=== PATIENT | female | born 1995 | race Caucasian/White ===

== ENCOUNTER 2019-05-17 17:26 | Emergency (ER) | payer OTHER ==
[2019-05-17 17:51] VITALS: BP 116/60; PULSE 82; TEMP 98.9; BMI 40.7
--- NOTE | 2019-05-17 18:09 | PDOC ---
History of Present Illness - General Chief Complaint: Injury Stated Complaint: L/PATELLA INJURY/EVALUATION Time Seen by Provider: 05/17/19 18:03 History Source: Patient Exam Limitations: No Limitations - History of Present Illness Occurred: reports: just prior to arrival Severity: reports: mild, moderate Pain Location: reports: lower extremity (left knee pain x 1 month ) Method of Injury: Yes: direct blow, fall Loss of Consciousness: no loss of consciousness Associated Symptoms (Fall): denies symptoms Past History - Travel Traveled outside of the country in the last 30 days: No Close contact w/someone who was outside of country & ill: No - Past Medical History Allergies/Adverse Reactions: Allergies Allergy/AdvReac Type Severity Reaction Status Date / Time lactose Allergy Verified 05/17/19 17:51 peanut Allergy Verified 05/17/19 17:51 No Known Drug Allergies AdvReac Verified 05/17/19 17:51 Home Medications: Ambulatory Orders Naproxen [Naprosyn -] 500 mg PO BID #14 tablet 04/18/16 Cane 1 each MC DAILY 1 Days #1 each 05/17/19 Oxycodone HCl/Acetaminophen [Percocet 5-325 mg Tablet -] 1 - 2 tab PO Q4H PRN # 10 tablet MDD 4 05/17/19 CVA: No COPD: No Thyroid Disease: (NONE) - Suicide/Smoking/Psychosocial Hx Smoking Status: No Smoking History: Never smoked Have you smoked in the past 12 months: No Number of Cigarettes Smoked Daily: 0 Information on smoking cessation initiated: No Hx Alcohol Use: No Drug/Substance Use Hx: No Substance Use Type: Alcohol Review of Systems - Review of Systems Able to Perform ROS?: Yes Is the patient limited Romanian proficient: Yes Constitutional: Yes: Symptoms Reported, See HPI, Malaise HEENTM: No: Symptoms Reported Respiratory: No: Symptoms reported Musculoskeletal: Yes: Symptoms Reported, See HPI, Joint Pain, Joint Swelling Integumentary: Yes: Symptoms Reported, See HPI All Other Systems: Reviewed and Negative *Physical Exam - Vital Signs Last Vital Signs Temp Pulse Resp BP Pulse Ox 98.9 F 82 19 116/60 99 05/17/19 17:47 05/17/19 17:47 05/17/19 17:47 05/17/19 17:47 05/17/19 17:47 - Physical Exam General Appearance: Yes: Nourished, Appropriately Dressed, Apparent Distress, Moderate Distress HEENT: positive: SARAH BETH, Normal ENT Inspection, TMs Normal, Pharynx Normal Neck: positive: Supple. negative: Tender, Lymphadenopathy (R), Lymphadenopathy (L) Respiratory/Chest: positive: Lungs Clear Musculoskeletal: positive: Normal Inspection. negative: Vertebral Tenderness Extremity: positive: Normal Capillary Refill, Tender, Swelling. negative: Normal Inspection, Normal Range of Motion (Ras range of motion secondary to moderate to severe edema/swelling to right knee capsule and joint space. Patella is mobile however is tender to touch. Has medial and lateral collateral ligamentous pain and unable to flex past approximately 45. Neurovascular intact afoot) Integumentary: positive: Normal Color Neurologic: positive: sports specialist II-XII NML intact, Fully Oriented, Alert, Normal Mood/ Affect, Normal Response, Motor Strength 5/5 Progress Note - Progress Note Progress Note: Extensive left knee damage incurred approximately one month ago. Is here requesting consultation, assistance with bracing, and recommendations for orthopedic consults. Has no pain medication, was uncertain as to how to apply brace. And had multiple questions about her injury which she reports and her family reports were never completely explained to her. *DC/Admit/Observation/Transfer Diagnosis at time of Disposition: Knee cartilage, torn, right Qualifiers: Tear current or old: current Encounter type: initial encounter Meniscus of knee : unspecified Meniscus tear of knee type: unspecified type Qualified Code(s): S83.206A - Unspecified tear of unspecified meniscus, current injury, right knee , initial encounter - Discharge Dispostion Disposition: HOME Condition at time of disposition: Stable Decision to Admit order: No - Prescriptions Prescriptions: Cane 1 each MC DAILY 1 Days #1 each Oxycodone HCl/Acetaminophen [Percocet 5-325 mg Tablet -] 1 - 2 tab PO Q4H PRN # 10 tablet MDD 4 PRN Reason: Pain - Referrals Referrals: Castro Bentley MD [Primary Care Provider] - - Patient Instructions Printed Discharge Instructions: DI for Knee Sprain Additional Instructions: Rest, ice to area on and off for 15 minutes 4-6 times a day Avoid heavy lifting or exercise until pain and swelling is resolved or until further directed Keep area highly elevated to reduce swelling Use splints Followup with orthopedist in one to 2 days if not improving, if significantly improved may wait one week for followup with orthopedist May use ibuprofen every 6 hours as needed for pain Percocet half tab to 1 tablet every 6 hours as needed for severe pain - Post Discharge Activity
== END 2019-05-17 18:57 | disposition home or self-care (01) ==
LOC: JERFT 17:26
DX: S83.204A Other tear of unspecified meniscus, current injury, left knee, initial encounter (principal); W19.XXXA Unspecified fall, initial encounter; Y93.89 Activity, other specified; Y92.89 Other specified places as the place of occurrence of the external cause; Y99.8 Other external cause status
CPT/HCPCS: 99281-25

== ENCOUNTER 2019-06-10 06:15 | Day surgery (SDC) | payer OTHER ==
[2019-06-10] MEDS ORDERED: EPINEPHrine 1:1,000 1 MG/1 ML - 30ML VIAL (INJECTION) ONE (07:04)
[2019-06-10 07:06] VITALS: BMI 39.6
[2019-06-10] MEDS ORDERED: MIDAZOLAM HCL 2 MG/2 ML SINGLE DOSE VIAL ONE ×3 (07:13→08:35)
[2019-06-10] MEDS ORDERED: SODIUM CHLORIDE 0.9% P/F 10 ML VIAL IJ ONE (07:13)
[2019-06-10] MEDS ORDERED: BUPIVACAINE HCL/PF 0.5% (5 MG/ML) 30 ML VIAL IJ ONE (07:13)
[2019-06-10] MEDS ORDERED: BUPIVACAINE LIPOSOME/PF (EXPAREL) 266 MG/20 ML VIAL ONE (07:13)
[2019-06-10] MEDS ORDERED: DEXAMETHASONE SOD PHOSPHATE 4 MG/1 ML VIAL ONE (07:26)
[2019-06-10] MEDS ORDERED: PROPOFOL 20 ML ONE ×8 (07:26→11:00)
[2019-06-10] MEDS ORDERED: ONDANSETRON 4 MG/2 ML VIAL ONE (07:26)
[2019-06-10] MEDS ORDERED: SUCCINYLCHOLINE CHLORIDE 200 MG/10 ML SYRINGE ONE (07:26)
--- NOTE | 2019-06-10 07:27 | OP ---
Operative Note - Note: Operative Date: 06/10/19 Pre-Operative Diagnosis: Left MCL tear Operation: Left MCL reconstruction Post-Operative Diagnosis: Same as Pre-op Surgeon: Saul Pineda [employer] Director: Andreea Osorio Anesthesia: General Operative Report Dictated: Yes
[2019-06-10] MEDS ORDERED: BUPIVACAINE HCL/PF 0.5% (5MG/ML) 10 ML VIAL ONE (07:49)
[2019-06-10] MEDS ORDERED: ONDANSETRON 4 MG/2 ML VIAL IVPUSH PRN (11:07)
[2019-06-10] MEDS ORDERED: oxyCODONE HCL 5 MG TABLET PO PRN (11:07)
[2019-06-10] MEDS ORDERED: LACTATED RINGERS SOLUTION 1,000 ML IV SCH (11:15)
--- NOTE | 2019-06-10 14:44 | OP ---
DATE OF OPERATION: 06/10/2019 POSTOPERATIVE DIAGNOSES: Left knee anterior cruciate ligament tear, posterior cruciate ligament tear, medial meniscal tear, lateral meniscal tear, medial collateral ligament tear, osteochondral lesion. POSTOPERATIVE DIAGNOSES: Left knee anterior cruciate ligament tear, posterior cruciate ligament tear, medial meniscal tear, lateral meniscal tear, medial collateral ligament tear, osteochondral lesion. PROCEDURE: Left knee arthroscopy with medial meniscal repair, lateral meniscectomy and then open reconstruction of the medial collateral ligament. ANESTHESIA: Spinal plus regional. POSTOPERATIVE CONDITION: Stable. COMPLICATIONS: None. IMPLANTS: Blood and Nephew 7 x 20-mm PEEK interference screw on the femur, Blood and Nephew FasT-Fix 360 x2 in the medial meniscus, Blood and Nephew Q-FIX anchor x1 in the femur, Arthrex 6.5-mm cancellous screw with 18-mm washer spiked in the tibia. INDICATIONS: This is a pleasant young woman who had injured her knee when jumping on a trampoline. MRI demonstrated the multiple injuries as demonstrated above. Given the multiligament injury and significant functional disability of the patient, operative care was recommended. We discussed the option of nonoperative care. I reviewed operative risks in detail including bleeding, infection, neurovascular injury, need for further surgery, postoperative pain and stiffness, progressive osteoarthritis, persistent instability, arthrofibrosis. We reviewed that the plan was to perform a staged procedure. The 1st procedure would be to deal with the medial collateral ligament and meniscal pathology. In addition, the osteochondral injury would be better assessed, and the determination would be made as to what fixation would be done here. The use of allograft was discussed along with the potential risks as well as infection. We discussed risk of rejection. We reviewed the postoperative rehabilitation protocol. We reviewed a 2nd procedure will be done to finish the ligamentous repair and that the staging would be beneficial to her to allow for some rehabilitation in between, limit her risk of arthrofibrosis, and allow for an efficient recovery. I addressed all of the patient's questions and concerns. We also reviewed medical risks such as heart attack, stroke, DVT, PE, and . We addressed the use of perioperative antibiotic and DVT prophylaxis. Patient voiced understanding and elected to proceed. DESCRIPTION OF PROCEDURE: Patient was brought to the operating room where she was placed supine on the operating room table. She was previously given a preoperative block in the holding area. Spinal anesthetic was administered then. She was then examined. The knee demonstrated range of motion 3 degrees of hyperextension to 90 degrees of flexion. The MCL opened in full extension with a moderate endpoint but no endpoint at 30 degrees. The PCL was felt to be stable. The ACL demonstrated positive Aman. The lateral collateral ligament was stable. The patient was now prepped and draped in the usual sterile fashion. A preoperative dose of antibiotics given, and the usual time-out procedure was performed. Initially, the procedures were started arthroscopically. The portals were marked out on the skin. The lateral portal was established using an 11 blade. The arthroscope was now passed into the knee. Examination of the patellofemoral joint demonstrated no articular lesions. There was significant synovial irritation and a small medial plica. The arthroscope was passed along the trochlea, and there was seen to be an osteochondral lesion at the medial border of the trochlea at its upper region. This was felt to be outside the articular region. The arthroscope was now passed down into the notch. Here ACL was clearly fully torn. The PCL had some tearing at its femoral origin but appeared intact. Medial portal was established with spinal needle localization. The ACL remnant was debrided demonstrating that the majority of the PCL did appear intact. The medial compartment was now examined. There was clear widening of the medial compartment. Initial inspection demonstrated a large cartilage lesion, which was measured at approximately 1 cm around on the medial femoral condyle. The attention was turned to the meniscus. The meniscus initially appeared okay; however, on probing of the posterior horn of the meniscus, there was a peripheral tear noted. It was in the red-white zone. Given her young age, it was felt that it was worth attempt at repairing. The mehreen were used to debride the tear area. Two FasT-Fix 360 devices were now inserted in horizontal mattress fashion along the posterior horn securing the meniscus down. It was now probed and found to be stable. The arthroscope was now passed into the lateral compartment. Here, the posterior horn was noted to be absent. The body had a tear, which had a portion flipped back upon itself. The arthroscope was passed down the notch after debriding the ACL, and the root tissue was visualized to be intact at the junction of the root and posterior horn. Free edge of the meniscus was grasped, and there was mobility only to assisted back towards the meniscal root, and therefore, repair was felt to be untenable. The free flap of the meniscus of the posterior horn was debrided, and the body was allowed to remain in place. There was superficial articular wear on the femoral and tibial surface as noted. The excess fluid was then withdrawn from the knee. The arthroscope was withdrawn. An incision was now planned obliquely over the medial aspect of the knee. The incision was carried down through skin through subcutaneous tissue. Blunt spreading was used to expose the fascia. The fascia was then split in line with the limb. A great deal of scarring was noted deep to the fascia. A ligamentous structure consistent with the MCL was identified, balled up, and sitting at the level of the joint line. The ball of tissue was freed up from the surrounding tissue, and the MCL was identified back to its origin. Though there were some fibers intact, the general character of the tendon was shredded in multiple planes, and upon putting tension on, they would not hold tension making direct repair impossible. The decision was made to perform a reconstruction. The deep MCL was now dissected cleanly away from the superficial MCL fibers. The deep MCL was noted to be torn obliquely extending more proximal from the joints. Deep MCL was now repaired using No. 1 Vicryl along with the capsule down to the meniscus. Having repaired this, attention was turned to reconstructing the superficial MCL. The anatomic origin of the MCL had been applied both by following the fibers back to their origin and also identifying the medial epicondyle and going posterior and just superior to it. The guide pin was inserted aiming obliquely, proximal, and anterior and advanced across the femur and out through the skin. This was then overreamed with a size 8 reamer based on sizing of the tibialis anterior graft. The socket was reamed to a depth of 25 mm. The Beath pin was then used to pass sutures, which were then placed into the graft, and the graft was drawn into the socket. An interference screw was now inserted gaining good purchase. A Q-FIX anchor was decided to be inserted as backup fixation. This was drilled proximal to the MCL origin, and both sutures were then further sutured through and tied providing extra fixation to the graft. The graft was then brought distal. The sartorius fascia was elevated, and the interval between the semitendinosus and gracilis was identified. A curette was passed on the anterior border of the tibia to remove any soft tissue and provide a good healing surface for the ligament. The 0.062 K-wire was then used to locate the center of the planned insertion. The graft was wrapped around the 0.062 K-wire and then the joint was passed through a range of motion to ensure the isometric properties were present, and they were. The K-wire was now overdrilled to 5 mm x 30 mm. A 25-mm cancellous screw was chosen. The graft was then split down to midline, and the screw was passed through the middle of the graft. A washer was placed 18 mm after the 14-mm washer was seen to be too small. Maintaining tension on the graft with a Jl clamp, the knee was positioned to 10 degrees of flexion and varus stress. The screw was then tightened down securing the graft. The knee was now tested both at zero and 30 degrees, and the MCL was found to be stable. At this point, the wound was copiously irrigated. The fascia was then repaired using No. 1 Vicryl over the MCL including the sartorius fascia and the crural fascia more proximal. The subcutaneous tissue was approximated using 0 Vicryl and 2-0 Vicryl. The skin was closed using 3-0 nylon. Sterile dressings were placed. The patient was transferred to recovery room after being placed into a knee immobilizer in stable condition. Tammie DAVENPORT/[id number]
[2019-06-10] MEDS ORDERED: oxyCODONE HCL 5 MG TABLET PO ONE (16:00)
[2019-06-10] MEDS ORDERED: oxyCODONE HCL 5 MG TABLET ONE (16:02)
[2019-06-10 16:08] VITALS: PULSE 74
[2019-06-10 16:37] VITALS: BP 113/71
[2019-06-10 17:20] VITALS: TEMP 97.4
== END 2019-06-10 17:10 | disposition home or self-care (01) ==
LOC: FASU 06:15
PROVIDERS: ATTEND Orthopaedic Surgery Sports Medicine
PROC: 0SBD4ZZ Excision of Left Knee Joint, Percutaneous Endoscopic Approach (ICD-10-PCS; 2019-06-10)
PROC: 0SQD0ZZ Repair Left Knee Joint, Open Approach (ICD-10-PCS; 2019-06-10)
PROC: 0SQD4ZZ Repair Left Knee Joint, Percutaneous Endoscopic Approach (ICD-10-PCS; principal; 2019-06-10 08:43)
DX: S83.512A Sprain of anterior cruciate ligament of left knee, initial encounter (principal); S83.522A Sprain of posterior cruciate ligament of left knee, initial encounter; S83.282A Other tear of lateral meniscus, current injury, left knee, initial encounter; S83.242A Other tear of medial meniscus, current injury, left knee, initial encounter; S83.412A Sprain of medial collateral ligament of left knee, initial encounter; M25.862 Other specified joint disorders, left knee; X58.XXXA Exposure to other specified factors, initial encounter; Y93.9 Activity, unspecified; Y92.9 Unspecified place or not applicable
CPT/HCPCS: 27405; 29881; 29882; G0289; 81025; 94760

== ENCOUNTER 2019-08-05 10:15 | Day surgery (SDC) | payer OTHER ==
--- NOTE | 2019-08-05 07:37 | OP ---
Operative Note - Note: Operative Date: 08/05/19 Pre-Operative Diagnosis: Left ACL tear Operation: Left ACL Reconstruction Post-Operative Diagnosis: Same as Pre-op Surgeon: Saul Pineda [employer] Specialist: Andreea Osorio Anesthesiologist/GRAIN RECEIVER: Tad Rico Anesthesia: General Operative Report Dictated: Yes
[2019-08-05] MEDS ORDERED: MIDAZOLAM HCL 2 MG/2 ML SINGLE DOSE VIAL ONE ×3 (10:25→12:23)
[2019-08-05 10:47] VITALS: BMI 38.7
[2019-08-05] MEDS ORDERED: SODIUM CHLORIDE 0.9% P/F 10 ML VIAL IJ ONE (11:10)
[2019-08-05] MEDS ORDERED: BUPIVACAINE HCL/PF 0.5% (5 MG/ML) 30 ML VIAL IJ ONE (11:10)
[2019-08-05] MEDS ORDERED: BUPIVACAINE HCL/PF 0.5% (5MG/ML) 10 ML VIAL ONE (12:34)
[2019-08-05] MEDS ORDERED: PROPOFOL 20 ML ONE ×5 (12:42→14:37)
[2019-08-05] MEDS ORDERED: ceFAZolin SODIUM 1 GM VIAL ONE ×2 (12:52→12:53)
[2019-08-05] MEDS ORDERED: DEXAMETHASONE SOD PHOSPHATE 4 MG/1 ML VIAL ONE ×2 (12:52)
[2019-08-05] MEDS ORDERED: LIDOCAINE HCL/PF 2% SDV 5ML VIAL ONE (12:52)
[2019-08-05] MEDS ORDERED: ONDANSETRON 4 MG/2 ML VIAL ONE (12:52)
[2019-08-05] MEDS ORDERED: TRANEXAMIC ACID 1000 MG/10 ML VIAL ONE (13:03)
[2019-08-05] MEDS ORDERED: EPINEPHrine 1:1,000 1 MG/1 ML - 30ML VIAL (INJECTION) ONE (14:19)
[2019-08-05 15:23] VITALS: TEMP 98
--- NOTE | 2019-08-05 15:32 | OP ---
DATE OF OPERATION: 08/05/2019 PREOPERATIVE DIAGNOSES: Left knee anterior cruciate ligament rupture, chondral defect. POSTOPERATIVE DIAGNOSES: Left knee anterior cruciate ligament rupture, chondral defect. PROCEDURE: Left knee arthroscopy with anterior cruciate ligament reconstruction, patellar tendon autograft, microfracture of chondral defect. SURGEON: Vikki Garces MD ETHICS OFFICER: KERI Groves, whose skillful assistance was necessary for the safe and timely performance of this procedure. Ms. Osorio was able to provide limb positioning, retraction, assist in graft preparation and harvest, as well as graft insertion and fixation. ANESTHESIA: Regional plus spinal. POSTOPERATIVE CONDITION: Stable. IMPLANTS: Arthrex 30 x 8 Bio[employer]posite interference screw, TightRope x1. INDICATIONS: This is a 24-year-old female who suffered a knee dislocation. She had been previously treated with a staged procedure of MCL reconstruction and meniscal repair. During this procedure, the goal is to restore the ACL stability and repair her chondral defect. Treatment options including nonoperative versus operative management reviewed. Operative risks were reviewed in detail including bleeding, infection, neurovascular injury, need for further surgery, postoperative pain and stiffness, graft failure or re-rupture, cartilage graft failure, progression of osteoarthritis. We discussed medical risks such as heart attack, stroke, DVT, PE, and . I addressed the use of perioperative antibiotic and DVT prophylaxis. I addressed all the patient's questions and concerns. She voiced understanding and elected to proceed. DESCRIPTION OF PROCEDURE: Patient was brought to the operating room where spinal anesthesia was administered. She was previously given a block in the preoperative holding area. The left lower extremity was then examined, demonstrating full range of motion, mild effusion, positive Aman, stable MCL, stable PCL, stable LCL. The patient was then prepped and draped in the usual sterile fashion. A preoperative dose of antibiotics was given, and the usual timeout procedure was performed. At this point, incision was planned out in the midline over the patella. This was carried down to the tibial tubercle. This was done through skin to subcutaneous tissue. Electrocautery was used to maintain hemostasis. The dissection was carried down to the paratenon which was split in line with its fibers, although it was somewhat adherent to the patellar tendon. The central third of the patellar tendon was identified. Utilizing a 10-mm catamaran blade, a swath of patellar tendon was incised. Two bone blocks were then marked out on the patellar and tibial surfaces to be 10 mm x 20 mm each. The oscillating saw was then used to excise the bone blocks. A 15 blade was used to remove any further soft tissue adhesions and the bone blocks removed using an osteotome. The graft was then removed and found to be a size 9.5 on both sides x 82 mm. The femoral side was sized down to a 16 mm x 9.5 mm block, and a TightRope was passed through a drill hole. The tibial graft side was drilled with 2 drill holes, and FiberWire sutures were passed. Concurrently, the arthroscopic portal was established by passing the trocar just lateral to the paratenon through the capsule. was passed into the joint. The patellofemoral joint appeared unremarkable. Examining the medial compartment demonstrated that the previously noted chondral lesion had mostly healed in with fibrocartilage which appeared smooth and stable. There was a small area on its most superior aspect where tissue had not healed in. Given that there was so much healing present, it was decided to perform a microfracture in the small unhealed area and allow the remainder of the cartilage to remain intact. We thought that the alternative of creating a new injury in this area to insert a bone plug would potentially create more damage. It was also felt that if this fiber cartilage should break down at any point, she could always return for a graft procedure at a later date. Attention was then turned to the notch. Here, whatever remnant of the ACL was left was debrided using a shaver as well as electrocautery. The femoral drill guide was now inserted onto the lateral bifurcate ridge. Here, a small incision was made laterally, and blunt spreading was used to allow the trocar to slide down to the level of the femoral cortex. The FlipCutter was then drilled into the knee. FlipCutter placement was visualized and was satisfactory. The FlipCutter was then toggled, and a 9 mm x 30 mm socket was created on the femoral side. The FlipCutter was then removed, and a passing suture was placed. The trocar was removed. Attention was turned to the tibial side. Here, a guide was placed in the center of the tibial footprint. Again, a small incision was made, and blunt spreading was used to allow the trocar to insert. The FlipCutter device was now drilled into the center of the tibial footprint. FlipCutter placement was verified and was satisfactory. The FlipCutter was then toggled, and a 9.5 tunnel was created on this side for approximately 40 mm. A boiling house hand size 10 was then passed through the aperture on the tibial side to allow for easy graft passage. The passing sutures were then passed through the tibial side. Prior to passing the sutures, shaver was used to remove any loose tissue about the aperture within the joint. The TightRope device was now passed using the passing sutures through the tibia and then through the femoral socket to seat firmly on the femoral cortex. This was done under direct visualization. After the button was firmly toggled, the graft was drawn into the knee, seating it 20 mm into the femoral socket. The knee was then cycled. A guide pin was now placed anterior to the tibial graft. A small marble polisher hand was used to create an entrance for the interference screw. An 8 x 30 mm screw was then chosen, and maintaining firm tension on the sutures, and the graft inserted, where excellent purchase was achieved. A Aman maneuver was now performed, and the knee was found to be stable. The TightRopes on the femoral side were tightened once more to ensure full stability. It should be noted that the graft was tight with the knee in 5 degrees of flexion. At this point, the excess sutures were cut. The deep tissue was approximated using number 1 Vicryl. The subcutaneous tissue was approximated using 2-0 Vicryl. The skin was closed using 3-0 nylon. Sterile dressings were placed. The patient was placed into a knee immobilizer. She was transferred to recovery room in stable condition. It should be noted that prior to closing and after the finish of the ACL portion of the procedure, a 0.062 K-wire was placed at the unhealed area of the osteochondral injury. This was then drilled down until marrow was seen to extrude from the microfracture hole. Closure was then completed. VIKKI GARCES M.D. VIKAS/[id number]
[2019-08-05] MEDS ORDERED: oxyCODONE HCL 5 MG TABLET PO PRN ×2 (15:36)
[2019-08-05] MEDS ORDERED: ONDANSETRON 4 MG/2 ML VIAL IVPUSH PRN (15:36)
[2019-08-05] MEDS ORDERED: PROMETHAZINE HCL 25 MG/1 ML VIAL IVPUSH PRN (15:36)
[2019-08-05 18:32] VITALS: BP 106/62; PULSE 73
== END 2019-08-05 18:48 | disposition home or self-care (01) ==
LOC: FASU 10:15
PROVIDERS: ATTEND Orthopaedic Surgery Sports Medicine
PROC: 0SBD4ZZ Excision of Left Knee Joint, Percutaneous Endoscopic Approach (ICD-10-PCS; 2019-08-05)
PROC: 0MRP47Z Replacement of Left Knee Bursa and Ligament with Autologous Tissue Substitute, Percutaneous Endoscopic Approach (ICD-10-PCS; principal; 2019-08-05 12:57)
DX: S83.512A Sprain of anterior cruciate ligament of left knee, initial encounter (principal); M94.8X6 Other specified disorders of cartilage, lower leg; X58.XXXA Exposure to other specified factors, initial encounter; Y93.9 Activity, unspecified; Y92.9 Unspecified place or not applicable
CPT/HCPCS: 29879; 29888; C1713; 84703; 94760

== ENCOUNTER 2022-05-03 22:27 | Emergency (ER) | payer OTHER ==
[~2022-05-03 22:27] MED LIST: LIDOCAINE PATCH REMOVAL MC SCH
[2022-05-03 22:39] VITALS: BP 102/60; PULSE 74; RESP 16; TEMP 97.9; BMI 38.8
[2022-05-03] MEDS ORDERED: LIDOCAINE 5% TOPICAL PATCH TP ONE (22:57)
[2022-05-03] MEDS ORDERED: ACETAMINOPHEN 500 MG TABLET (FP) PO ONE (22:57)
[2022-05-03] MEDS ORDERED: ACETAMINOPHEN 500 MG TABLET (FP) ONE (23:05)
[2022-05-03] MEDS ORDERED: LIDOCAINE 5% TOPICAL PATCH ONE (23:06)
== END 2022-05-03 23:31 | disposition home or self-care (01) ==
LOC: FER 22:27
DX: M25.362 Other instability, left knee (principal)
CPT/HCPCS: 73560-TC-LT-FY; 99283-25

== ENCOUNTER 2022-10-14 11:15 | Emergency (ER) | payer OTHER ==
[2022-10-14 11:24] VITALS: BP 133/78; PULSE 92; RESP 20; TEMP 97.2; BMI 40.4
[2022-10-14] MEDS ORDERED: IBUPROFEN 400 MG TABLET (FP) PO ONE ×2 (12:39→12:53)
== END 2022-10-14 15:26 | disposition home or self-care (01) ==
LOC: JERFT 11:15
DX: R51.9 Headache, unspecified (principal); M54.2 Cervicalgia
CPT/HCPCS: 70450-TC; 72125-TC; 99284-25

== ENCOUNTER 2023-03-13 06:16 | Day surgery (SDC) | payer OTHER ==
[2023-03-11 12:03] VITALS: BMI 40.7
[2023-03-13] MEDS ORDERED: VANCOMYCIN 1,000 MG VIAL (RESTRICTED TO ID ONLY) ONE (07:14)
[2023-03-13] MEDS ORDERED: BUPIVACAINE HCL/PF 0.25% (2.5MG/ML) 10 ML VIAL ONE (07:15)
[2023-03-13] MEDS ORDERED: EPINEPHrine 1:1,000 1,000 MCG/ML ML ONE (07:15)
[2023-03-13] MEDS ORDERED: SUCCINYLCHOLINE CHLORIDE 200 MG/10 ML SYRINGE ONE (07:24)
[2023-03-13] MEDS ORDERED: PROPOFOL 60 ML ONE ×2 (07:24→08:01)
[2023-03-13] MEDS ORDERED: ROCURONIUM BROMIDE 50 MG/5 ML SYRINGE ONE (07:25)
[2023-03-13] MEDS ORDERED: BUPIVACAINE HCL/PF 0.5% (5MG/ML) 10 ML VIAL ONE (07:29)
[2023-03-13] MEDS ORDERED: BUPIVACAINE HCL/PF 2.5 MG/ML - 30 ML VIAL IJ ONE (07:29)
[2023-03-13] MEDS ORDERED: MIDAZOLAM HCL 2 MG/2 ML SINGLE DOSE VIAL ONE (07:30)
[2023-03-13] MEDS ORDERED: FENTANYL CITRATE/PF 50 MCG/ML VIAL ONE (07:30)
[2023-03-13] MEDS ORDERED: SODIUM CHLORIDE 0.9% P/F 10 ML VIAL IJ ONE (07:37)
[2023-03-13] MEDS ORDERED: ePHEDrine SULFATE 50 MG/1 ML AMPULE ONE (08:43)
[2023-03-13] MEDS ORDERED: ceFAZolin SODIUM 1 GM VIAL ONE (09:04)
[2023-03-13] MEDS ORDERED: TRANEXAMIC ACID 1000 MG/10 ML VIAL ONE (09:04)
[2023-03-13] MEDS ORDERED: ONDANSETRON 4 MG/2 ML VIAL ONE (09:04)
[2023-03-13] MEDS ORDERED: PROPOFOL 20 ML ONE ×6 (09:04→11:55)
[2023-03-13] MEDS ORDERED: DEXAMETHASONE SOD PHOSPHATE 4 MG/1 ML VIAL ONE (09:04)
[2023-03-13] MEDS ORDERED: METOCLOPRAMIDE HCL INJECTION 10 MG/2 ML VIAL ONE (09:04)
[2023-03-13] MEDS ORDERED: PHENYLEPHRINE HCL 10 MG/1 ML SINGLE DOSE VIAL ONE (09:06)
[2023-03-13] MEDS ORDERED: PROPOFOL 40 ML ONE (10:43)
[2023-03-13] MEDS ORDERED: PROMETHAZINE HCL 25 MG/1 ML VIAL IVPB PRN (12:25)
[2023-03-13] MEDS ORDERED: oxyCODONE HCL 5 MG TABLET PO PRN ×2 (12:25)
[2023-03-13] MEDS ORDERED: LACTATED RINGERS SOLUTION 1,000 ML IV SCH (12:30)
[2023-03-13] MEDS ORDERED: ACETAMINOPHEN 1000 MG/100 ML BAG IVPB ONE (14:00)
[2023-03-13 16:05] VITALS: BP 102/64; PULSE 64; RESP 20; TEMP 97
== END 2023-03-13 15:45 | disposition home or self-care (01) ==
LOC: FASU 06:16
PROVIDERS: ATTEND Orthopaedic Surgery Sports Medicine
PROC: 0SBD4ZZ Excision of Left Knee Joint, Percutaneous Endoscopic Approach (ICD-10-PCS; 2023-03-13)
PROC: 0MRP47Z Replacement of Left Knee Bursa and Ligament with Autologous Tissue Substitute, Percutaneous Endoscopic Approach (ICD-10-PCS; principal; 2023-03-13 08:25)
PROC: 0SBD4ZZ Excision of Left Knee Joint, Percutaneous Endoscopic Approach (ICD-10-PCS; 2023-03-13 08:25)
DX: S83.512A Sprain of anterior cruciate ligament of left knee, initial encounter (principal); S83.242A Other tear of medial meniscus, current injury, left knee, initial encounter; S83.282A Other tear of lateral meniscus, current injury, left knee, initial encounter; X58.XXXA Exposure to other specified factors, initial encounter; Y93.9 Activity, unspecified; Y92.9 Unspecified place or not applicable
CPT/HCPCS: 29880; 29888; C1713; 81025; 94760

== ENCOUNTER 2024-02-03 17:45 | Emergency (ER) | payer SELFPAY ==
[2024-02-03 17:54] VITALS: BP 113/71; PULSE 82; RESP 20; TEMP 98.5; BMI 39.3
[2024-02-03 19:16] LABS: BASO % 0.8 % (0-2.0); EOS % 1.3 % (0-4.5); HEMATOCRIT 35.2 % (32.4-45.2); HEMOGLOBIN 11.8 GM/dL (10.7-15.3); LYMPH % 30.4 % (8-40); MCH 29.8 pg (25.7-33.7); MCHC 33.6 g/dl (32.0-36.0); MEAN CELL VOLUME 88.5 fl (80-96); MONO % 9.2 % (3.8-10.2); NEUT % 58.3 % (42.8-82.8); PLATELET COUNT 286 10^3/uL (134-434); RBC 3.98 M/mm3 (3.60-5.2); RDW 14.6 % (11.6-15.6); WHITE BLOOD COUNT 7.6 K/mm3 (4.0-10.0)
[2024-02-03 19:43] LABS: POTASSIUM 3.8 mmol/L (3.5-5.1)
[2024-02-03 19:44] LABS: CALCIUM 9.4 mg/dL (8.5-10.1)
[2024-02-03 19:45] LABS: BLOOD UREA NITROGEN 15.1 mg/dL (7-18)
[2024-02-03 19:48] LABS: CREATININE 0.7 mg/dL (0.55-1.3)
[2024-02-03] MEDS ORDERED: KETOROLAC TROMETHAMINE 30 MG/1 ML VIAL ONE (22:20)
[2024-02-03] MEDS ORDERED: DEXAMETHASONE SOD PHOSPHATE 10 MG/1 ML VIAL ONE (22:20)
[2024-02-03] MEDS ORDERED: ACETAMINOPHEN 500 MG TABLET (FP) ONE (22:20)
[2024-02-03] MEDS: DEXAMETHASONE SOD PHOSPHATE 10 MG/1 ML VIAL PO ONE (22:27)
[2024-02-03] MEDS: ACETAMINOPHEN 500 MG TABLET (FP) PO ONE (22:27)
[2024-02-03] MEDS: KETOROLAC TROMETHAMINE 30 MG/1 ML VIAL IM ONE (22:27)
== END 2024-02-03 22:50 | disposition home or self-care (01) ==
LOC: JERFT 17:45
PROC: 3E023GC Introduction of Other Therapeutic Substance into Muscle, Percutaneous Approach (ICD-10-PCS; principal; 2024-02-03)
DX: M79.662 Pain in left lower leg (principal)
CPT/HCPCS: 36415; 73706-TC-RT; 80048; 84703; 85025; 93971-TC; 99284-25; J1100; Q9967